=== PATIENT | female | born 1990 | race Hispanic/Latino ===

== ENCOUNTER 2019-04-05 21:43 | Emergency (ER) | payer SELFPAY ==
[2019-04-05 21:48] VITALS: BP 100/57
--- NOTE | 2019-04-05 22:18 | Event Note ---
ED Screening Note Date of service: 04/05/19 Time: 22:16 ED Screening Note: 28 y o prasanna with cc of white lesions on her tongue and red spots in her throat causing pain with swallowing and opening her mouth tearful in traige ststes she has used oral flucans with no relief This initial assessment/diagnostic orders/clinical plan/treatment(s) is/are subject to change based on patients health status, clinical progression and re- assessment by fellow clinical providers in the ED. Further treatment and workup at subsequent clinical providers discretion. Patient/guardian urged not to elope from the ED as their condition may be serious if not clinically assessed and managed. Initial orders include: acc eval
--- NOTE | 2019-04-06 00:04 | Emergency Department Report ---
ED ENT HPI - General Chief complaint: Dental/Oral Stated complaint: THROAT PAIN Time Seen by Provider: 04/05/19 23:59 Source: patient Mode of arrival: Ambulatory Limitations: No Limitations - Related Data Previous Rx's Medication Instructions Recorded Last Taken Type Nystas/Diphen/Xyl Visc/Mylanta 30 ml MM TID PRN #480 ml 04/06/19 Unknown Rx [Magic Mouthwash] Allergies Allergy/AdvReac Type Severity Reaction Status Date / Time No Known Allergies Allergy Unverified 04/05/19 22:04 ED Dental HPI - General Chief complaint: Dental/Oral Stated complaint: THROAT PAIN Time Seen by Provider: 04/05/19 23:59 Source: patient Mode of arrival: Ambulatory Limitations: No Limitations - Related Data Previous Rx's Medication Instructions Recorded Last Taken Type Nystas/Diphen/Xyl Visc/Mylanta 30 ml MM TID PRN #480 ml 04/06/19 Unknown Rx [Magic Mouthwash] Allergies Allergy/AdvReac Type Severity Reaction Status Date / Time No Known Allergies Allergy Unverified 04/05/19 22:04 ED Review of Systems ROS: Stated complaint: THROAT PAIN Other details as noted in HPI ED Past Medical Hx - Past Medical History Previous Medical History?: Yes Additional medical history: HPV, HSV - Surgical History Past Surgical History?: Yes Additional Surgical History: Tubes clamped - Social History Smoking Status: Current Every Day Smoker Substance Use Type: None - Medications Home Medications: Home Medications Medication Instructions Recorded Confirmed Last Taken Type Nystas/Diphen/Xyl Visc/Mylanta 30 ml MM TID PRN #480 ml 04/06/19 Unknown Rx [Magic Mouthwash] ED Physical Exam - General Limitations: No Limitations General appearance: alert, in no apparent distress, other (tearful) - Head Head exam: Present: atraumatic, normocephalic - Expanded ENT Exam Expanded Mouth exam: Present: other (multiple blisters on inner check. ). Absent: drooling, trismus, muffled voice, tongue elevation, laceration Teeth exam: Absent: dental caries, gingival enlargement Throat exam: Positive: tonsillar erythema. Negative: tonsillar exudate - Neck Neck exam: Present: normal inspection, full ROM. Absent: tenderness, lymphadenopathy, thyromegaly - Neurological Exam Neurological exam: Present: alert, oriented X3, normal gait - Psychiatric Psychiatric exam: Present: normal affect, normal mood - Skin Skin exam: Present: warm, dry, intact, normal color. Absent: rash ED Course Vital Signs 04/05/19 21:47 Temperature 99.0 F Pulse Rate 66 Respiratory 18 Rate Blood Pressure 100/57 O2 Sat by Pulse 100 Oximetry Critical care attestation.: If time is entered above; I have spent that time in minutes in the direct care o f this critically ill patient, excluding procedure time. ED Disposition Clinical Impression: Thrush of mouth and esophagus Disposition: - TO HOME OR SELFCARE Is pt being admited?: No Does the pt Need Aspirin: No Condition: Stable Instructions: Oral Candidiasis (ED) Additional Instructions: Take medication as prescribed. Follow up with infectious disease provider in otolaryngologists/ear nose and throat provider. Prescriptions: Nystas/Diphen/Xyl Visc/Mylanta [Magic Mouthwash] 30 ml MM TID PRN #480 ml PRN Reason: Mouth Pain Referrals: PRIMARY CAREMD [Primary Care Provider] - 3-5 Days ROXI PICKERING MD [Staff Physician] - 3-5 Days DEMETRIUS BATES MD [Staff Physician] - 3-5 Days
== END 2019-04-06 00:05 | disposition home or self-care (01) ==
LOC: ED 21:43
DX: B37.81 Candidal esophagitis (principal); F17.200 Nicotine dependence, unspecified, uncomplicated

== ENCOUNTER 2019-06-24 23:16 | Emergency (ER) | payer SELFPAY ==
[2019-06-25 00:35] LABS: Basophils % (Auto) 0.5 % (0.0-1.8); Eosinophils # (Auto) 0.4 K/mm3 (0.0-0.4); Eosinophils % (Auto) 5.3 % (0.0-4.3); Hematocrit 37.1 % (30.3-42.9); Hemoglobin 12.5 gm/dl (10.1-14.3); Lymphocytes # (Auto) 2.2 K/mm3 (1.2-5.4); Lymphocytes % (Auto) 26.3 % (13.4-35.0); Mean Corpuscular HGB Conc 34 % (30-34); Mean Corpuscular Volume 92 fl (79-97); Monocytes # (Auto) 0.5 K/mm3 (0.0-0.8); Monocytes % (Auto) 5.9 % (0.0-7.3); Platelet Count 183 K/mm3 (140-440); Red Blood Count 4.04 M/mm3 (3.65-5.03); Red Cell Distribution Width 12.9 % (13.2-15.2)
[2019-06-25 00:48] LABS: Bilirubin,Urine NEG (Negative); Blood,Urine SM (Negative); Color,Urine Yellow (Yellow); Mucus,Urine 1+ /HPF; Protein,Urine <15 mg/dL mg/dL (Negative)
[2019-06-25 00:58] LABS: Alanine Aminotransferase 8 units/L (7-56); Albumin 4.5 g/dL (3.9-5); BUN/Creatinine Ratio 32; Blood Urea Nitrogen 19 mg/dL (7-17); Hemolysis Index 4
[2019-06-25 01:04] LABS: HCG Qualitative,Urine Negative (Negative)
== END 2019-06-25 03:31 | disposition left against medical advice (07) ==
LOC: ED 23:16
DX: M54.5 Low back pain (principal); Z53.21 Procedure and treatment not carried out due to patient leaving prior to being seen by health care provider
CPT/HCPCS: 36415; 80053; 81001; 81025; 85025

== ENCOUNTER 2020-03-18 20:07 | Emergency (ER) | payer SELFPAY ==
--- NOTE | 2020-03-18 20:56 | Event Note ---
ED Screening Note Date of service: 03/18/20 Time: 20:55 ED Screening Note: Patient complains of bright red blood in stools x2 weeks States she has had this intermittently for about 3 years, however she has never been evaluated States some mild abdominal pain This initial assessment/diagnostic orders/clinical plan/treatment(s) is/are subject to change based on patients health status, clinical progression and re- assessment by fellow clinical providers in the ED. Further treatment and workup at subsequent clinical providers discretion. Patient/guardian urged not to elope from the ED as their condition may be serious if not clinically assessed and managed. Initial orders include: Labs
[2020-03-18 21:02] VITALS: BP 99/60
[2020-03-18 21:25] LABS: Basophils # (Auto) 0.1 K/mm3 (0.0-0.1); Eosinophils # (Auto) 0.6 K/mm3 (0.0-0.4); Eosinophils % (Auto) 8.4 % (0.0-4.3); Hematocrit 35.5 % (30.3-42.9); Hemoglobin 12.1 gm/dl (10.1-14.3); Lymphocytes # (Auto) 2.8 K/mm3 (1.2-5.4); Lymphocytes % (Auto) 36.1 % (13.4-35.0); Mean Corpuscular HGB Conc 34 % (30-34); Mean Corpuscular Volume 93 fl (79-97); Monocytes # (Auto) 0.5 K/mm3 (0.0-0.8); Monocytes % (Auto) 6.1 % (0.0-7.3); Platelet Count 174 K/mm3 (140-440); Red Blood Count 3.82 M/mm3 (3.65-5.03); Red Cell Distribution Width 12.5 % (13.2-15.2)
[2020-03-18 21:35] LABS: INR 1.03 (0.87-1.13)
[2020-03-18 21:49] LABS: Alanine Aminotransferase 20 units/L (7-56); Albumin 4.4 g/dL (3.9-5); Blood Urea Nitrogen 8 mg/dL (7-17); Calcium 9.1 mg/dL (8.4-10.2); Hemolysis Index 5
[2020-03-18 21:55] LABS: BUN/Creatinine Ratio 16
[2020-03-18 22:13] LABS: Bilirubin,Urine NEG (Negative); Blood,Urine NEG (Negative); Color,Urine Yellow (Yellow); Mucus,Urine 3+ /HPF; WBC,Urine < 1.0 /HPF (0.0-6.0)
[2020-03-18 22:26] LABS: Erythrocyte Sedimentation Rate 16 mm/Hr (0-20)
--- NOTE | 2020-03-18 22:59 | Emergency Department Report ---
ED GI Bleed HPI - General Chief complaint: GI Bleed Stated complaint: RECTAL BLEEDING X2 WEEKS Time Seen by Provider: 03/18/20 20:54 Source: patient Mode of arrival: Ambulatory Limitations: No Limitations - History of Present Illness Initial comments: Patient is a 29-year-old female who states she has had 2 weeks of rectal bleeding. States bright red blood per rectum which is painless. She states is filling up the toilet and occasionally she will have clots. She denies abdominal pain at this time. States there is no dizziness fevers chills cough cold or congestion. Patient states this has occurred off and on for the past 2 weeks. She has tried [id number] medications for hemorrhoids but has not followed up with a director safety council. - Related Data Previous Rx's Medication Instructions Recorded Last Taken Type Nystas/Diphen/Xyl Visc/Mylanta 30 ml MM TID PRN #480 ml 04/06/19 Unknown Rx [Magic Mouthwash] Pramoxine 1% [Proctofoam] 1 applicatio TP 5XD 3 Days foam 03/18/20 Unknown Rx Allergies Allergy/AdvReac Type Severity Reaction Status Date / Time No Known Allergies Allergy Unverified 04/05/19 22:04 ED Review of Systems ROS: Stated complaint: RECTAL BLEEDING X2 WEEKS Other details as noted in HPI Comment: All other systems reviewed and negative ED Past Medical Hx - Past Medical History Previous Medical History?: Yes Additional medical history: HPV, HSV - Surgical History Past Surgical History?: Yes Additional Surgical History: Tubes clamped - Social History Smoking Status: Current Every Day Smoker Substance Use Type: None - Medications Home Medications: Home Medications Medication Instructions Recorded Confirmed Last Taken Type Nystas/Diphen/Xyl Visc/Mylanta 30 ml MM TID PRN #480 ml 04/06/19 Unknown Rx [Magic Mouthwash] Pramoxine 1% [Proctofoam] 1 applicatio TP 5XD 3 Days foam 03/18/20 Unknown Rx ED Physical Exam - General Limitations: No Limitations General appearance: alert, in no apparent distress - Head Head exam: Present: atraumatic, normocephalic - Eye Eye exam: Present: normal appearance - ENT ENT exam: Present: normal orophraynx, mucous membranes moist - Neck Neck exam: Present: normal inspection - Respiratory Respiratory exam: Present: normal lung sounds bilaterally. Absent: respiratory distress, wheezes, rales, rhonchi - Cardiovascular Cardiovascular Exam: Present: regular rate, normal rhythm, normal heart sounds. Absent: systolic murmur, diastolic murmur, rubs, gallop - GI/Abdominal GI/Abdominal exam: Present: soft, normal bowel sounds. Absent: distended, tenderness, guarding, rebound, rigid - Extremities Exam Extremities exam: Present: normal inspection - Back Exam Back exam: Present: normal inspection - Neurological Exam Neurological exam: Present: alert, oriented X3 - Psychiatric Psychiatric exam: Present: normal affect, normal mood - Skin Skin exam: Present: warm, dry, intact, normal color. Absent: rash ED Course Vital Signs 03/18/20 20:51 Temperature 98.1 F Pulse Rate 72 Respiratory 19 Rate Blood Pressure 99/60 O2 Sat by Pulse 100 Oximetry ED Medical Decision Making - Lab Data Result diagrams: 03/18/20 21:08 03/18/20 21:08 - Medical Decision Making Patient's hemoglobin is within normal limits. She has no abdominal pain. Patient be referred to gastroenterology for further management. Ultimately the patient will likely need to be scoped to find out the exact cause of the rectal bleeding. We will give the patient a prescription for Proctofoam. Critical care attestation.: If time is entered above; I have spent that time in minutes in the direct care of this critically ill patient, excluding procedure time. ED Disposition Clinical Impression: Lower GI bleed Disposition: DC-01 TO HOME OR SELFCARE Is pt being admited?: No Does the pt Need Aspirin: No Condition: Stable Instructions: Gastrointestinal Bleeding Referrals: [facility] [Provider Group] - 3-5 Days Time of Disposition: 22:57
== END 2020-03-18 23:13 | disposition home or self-care (01) ==
LOC: ED 20:07
DX: K92.2 Gastrointestinal hemorrhage, unspecified (principal); F17.200 Nicotine dependence, unspecified, uncomplicated
CPT/HCPCS: 36415; 80053; 81001; 84703; 85025; 85610; 85652; 85730; 99283